=== PATIENT | male | born 1965 | race Caucasian/White ===

== ENCOUNTER 2021-09-01 10:18 | Emergency (ER) | payer OTHER ==
[2021-09-01 10:47] VITALS: BP 136/88; PULSE 82; RESP 20; TEMP 97.6
--- NOTE | 2021-09-01 11:29 | XR ---
EXAMINATION TYPE: XR elbow complete LT DATE OF EXAM: 09/01/2021 COMPARISON: NONE HISTORY: Pain FINDINGS: Three views of the elbow demonstrate no pathologic joint effusion. The osseous structures are intact . There is no acute fracture or dislocation. Small hypertrophic spur involving the head of the radi us. IMPRESSION: 1. No acute fracture or dislocation. If symptoms persist follow-up study in 7 to 10 days could be ob tained.
--- NOTE | 2021-09-01 11:32 | XR ---
EXAMINATION TYPE: XR ribs LT w pa chest xray DATE OF EXAM: 09/01/2021 COMPARISON: NONE HISTORY: Pain TECHNIQUE: Frontal view of the chest and 5 views of the left ribs are submitted FINDINGS: Slight diffuse emphysematous changes are seen with no sizable pneumothorax or consolidation . There is a slight cortical offset of the posterior lateral left eighth rib compatible with fracture. IMPRESSION: Acute mildly displaced fracture lateral left eighth rib.
[2021-09-01] MEDS ORDERED: MORPHINE SULFATE 4 MG/ML SYRINGE IVP STA (11:52)
[2021-09-01] MEDS ORDERED: ACET/COD 300 MG/30 MG STARTER PACK 6 TAB BTL PO STA (12:36)
--- NOTE | 2021-09-01 12:55 | ED ---
Fall HPI - General Chief Complaint: Fall Stated Complaint: Fall/rib pain Time Seen by Provider: 09/01/21 11:38 Source: patient Mode of arrival: wheelchair - History of Present Illness Initial Comments: Patient is a 55-year-old male who presents after a fall have for 4:00 AM last night. Patient reports he was stepping out of bed when he fell and landed on his bedside table and into the wall. Patient cannot recall if he lost consciousness. He is not on blood thinners. Patient reports pain over the lateral left ribs, 8/10 in severity. He also reports left elbow pain posterio rly.Patient denies head/neck pain, chest pain, shortness of breath. - Related Data Home Medications Medication Instructions Recorded Confirmed Albuterol Sulfate [Proair Hfa] 2 puff INHALATION RT-QID PRN 09/01/21 09/01/21 Allergies Allergy/AdvReac Type Severity Reaction Status Date / Time No Known Allergies Allergy Verified 09/01/21 12:51 Review of Systems ROS Statement: Those systems with pertinent positive or pertinent negative responses have been documented in the HPI. ROS Other: All systems not noted in ROS Statement are negative. Past Medical History Past Medical History: Asthma Additional Past Medical History / Comment(s): diverticulitis. History of Any Multi-Drug Resistant Organisms: None Reported Past Surgical History: Hernia Repair Past Psychological History: Anxiety Smoking Status: Current every day smoker Past Alcohol Use History: Occasional Past Drug Use History: Marijuana General Exam Limitations: no limitations General appearance: alert, in no apparent distress Head exam: Present: atraumatic, normocephalic, normal inspection Eye exam: Present: normal appearance, PERRL, EOMI. Absent: scleral icterus, conjunctival injection, periorbital swelling ENT exam: Present: normal exam, mucous membranes moist Neck exam: Present: normal inspection. Absent: tenderness, meningismus, lymphadenopathy Respiratory exam: Present: normal lung sounds bilaterally. Absent: respiratory distress, wheezes, rales, rhonchi, stridor Cardiovascular Exam: Present: regular rate, normal rhythm, normal heart sounds. Absent: systolic murmur, diastolic murmur, rubs, gallop, clicks GI/Abdominal exam: Present: soft, normal bowel sounds. Absent: distended, tenderness, guarding, rebound, rigid Extremities exam: Present: normal inspection, full ROM, tenderness (left elbow posteriorly ), normal capillary refill. Absent: joint swelling Back exam: Present: normal inspection, full ROM. Absent: tenderness, CVA tenderness (L), muscle spasm, paraspinal tenderness, vertebral tenderness, rash noted Neurological exam: Present: alert, oriented X3, CN II-XII intact Psychiatric exam: Present: normal affect, normal mood Skin exam: Present: warm, dry, intact, normal color. Absent: rash Course Vital Signs 09/01/21 10:43 Temperature 97.6 F Pulse Rate 82 Respiratory 20 Rate Blood Pressure 136/88 O2 Sat by Pulse 96 Oximetry Medical Decision Making - Medical Decision Making This is a 55-year-old male who reports with left-sided rib pain and left elbow pain after a fall at 4 AM last night. X-ray left ribs with chest x-ray reveals an acute mildly displaced fracture of the lateral left eighth rib. X-ray left elbow reveals no acute fracture or dislocation. This resulted patient. Patient seen by respiratory for spirometry treatment and education. Patient encouraged to continue spirometry at home. Patient instructed to return to emergency department if there are concerning, new,or worsening symptoms. Disposition Clinical Impression: Left rib fracture Disposition: HOME SELF-CARE Condition: Good Instructions (If sedation given, give patient instructions): Rib Fracture (ED) Additional Instructions: Take medication as directed. Use spirometer as directed. Return to the ED if worsening symptoms or if experienced symptoms of pneumonia such as fever, chills, cough, chest pain. Follow-up with primary care provider in 1-2 days. Is patient prescribed a controlled substance at d/c from ED?: No Referrals: Phan Zelaya MD [Primary Care Provider] - 1-2 days Time of Disposition: 12:54 Decision Time: 12:55
== END 2021-09-01 13:13 | disposition home or self-care (01) ==
LOC: EC 10:18
DX: S22.32XA Fracture of one rib, left side, initial encounter for closed fracture (principal); J45.909 Unspecified asthma, uncomplicated; F17.200 Nicotine dependence, unspecified, uncomplicated; W19.XXXA Unspecified fall, initial encounter
CPT/HCPCS: 71101; 73080; 99284; 96374; J2270

== ENCOUNTER 2022-02-16 06:51 | Emergency (ER) | payer OTHER ==
[2022-02-16 06:56] VITALS: RESP 18
[2022-02-16] MEDS ORDERED: SODIUM CHLORIDE 0.9% 500 ML 500 ML IV STA (07:38)
--- NOTE | 2022-02-16 07:41 | ED ---
General Adult HPI - General Chief complaint: Back Pain/Injury Stated complaint: RT flank pain Time Seen by Provider: 02/16/22 07:33 Source: patient, RN notes reviewed, old records reviewed Mode of arrival: ambulatory Limitations: no limitations - History of Present Illness Initial comments: 56-year-old male presenting for evaluation of right flank pain and lower abdominal pain. Patient states she was diagnosed with urinary tract infection and sinus infection with his primary care physician yesterday. He was started on Levaquin. Pain has worsened over the past 24 hours. He's had some diarrhea. He also has had some urinary urgency and dysuria. He denies fever. Denies vomiting. Denies a previous history of kidney stones. He states he does have a history of diverticulitis. - Related Data Home Medications Medication Instructions Recorded Confirmed Albuterol Sulfate [Proair Hfa] 2 puff INHALATION RT-QID PRN 09/01/21 02/16/22 Acetaminophen Tab [Tylenol Tab] 1,000 mg PO Q6HR PRN 02/16/22 02/16/22 Levofloxacin [Levaquin] 500 mg PO DAILY 02/16/22 02/16/22 Sertraline HCl [Zoloft] 50 mg PO DAILY 02/16/22 02/16/22 Allergies Allergy/AdvReac Type Severity Reaction Status Date / Time No Known Allergies Allergy Verified 02/16/22 09:46 Review of Systems ROS Statement: Those systems with pertinent positive or pertinent negative responses have been documented in the HPI. ROS Other: All systems not noted in ROS Statement are negative. Past Medical History Past Medical History: Asthma Additional Past Medical History / Comment(s): diverticulitis. History of Any Multi-Drug Resistant Organisms: None Reported Past Surgical History: Hernia Repair Past Psychological History: Anxiety Smoking Status: Current every day smoker Past Alcohol Use History: Occasional Past Drug Use History: Marijuana General Exam Limitations: no limitations General appearance: alert, in no apparent distress Head exam: Present: atraumatic, normocephalic Eye exam: Present: normal appearance, PERRL ENT exam: Present: normal exam Neck exam: Present: normal inspection. Absent: tenderness, meningismus Respiratory exam: Present: normal lung sounds bilaterally. Absent: respiratory distress, wheezes Cardiovascular Exam: Present: regular rate, normal rhythm GI/Abdominal exam: Present: soft, tenderness (Mild right-sided tenderness). Absent: distended, guarding, rebound Extremities exam: Present: normal inspection, normal capillary refill. Absent: calf tenderness Back exam: Present: CVA tenderness (R) Neurological exam: Present: alert, oriented X3, CN II-XII intact. Absent: motor sensory deficit Psychiatric exam: Present: normal affect, normal mood Skin exam: Present: warm, dry, intact. Absent: cyanosis, diaphoretic Course Vital Signs 02/16/22 06:54 Temperature 97.8 F Pulse Rate 89 Respiratory 18 Rate Blood Pressure 130/94 O2 Sat by Pulse 97 Oximetry Medical Decision Making - Medical Decision Making 56-year-old male with right upper abdominal pain and right flank pain currently being treated for urinary tract infection. I did obtain laboratory testing on this patient, normal white blood cell count, stable hemoglobin, mildly elevated liver enzymes and the patient does admit to daily alcohol use. His urinalysis is not suggestive of urinary tract infection there is no significant hematuria. The ultrasound is negative for acute pathology, no hydronephrosis on the right. - Lab Data Result diagrams: 02/16/22 07:42 02/16/22 07:42 Lab Results 02/16/22 02/16/22 02/16/22 Range/Units 07:42 07:42 07:42 WBC 8.9 (3.8-10.6) k/uL RBC 4.42 (4.30-5.90) m/uL Hgb 15.7 (13.0-17.5) gm/dL Hct 44.9 (39.0-53.0) % MCV 101.6 H (80.0-100.0) fL MCH 35.5 H (25.0-35.0) pg MCHC 35.0 (31.0-37.0) g/dL RDW 14.0 (11.5-15.5) % Plt Count 385 (150-450) k/uL MPV 7.1 Neutrophils % 72 % Lymphocytes % 17 % Monocytes % 7 % Eosinophils % 1 % Basophils % 1 % Neutrophils # 6.4 (1.3-7.7) k/uL Lymphocytes # 1.5 (1.0-4.8) k/uL Monocytes # 0.7 (0-1.0) k/uL Eosinophils # 0.1 (0-0.7) k/uL Basophils # 0.1 (0-0.2) k/uL Macrocytosis Slight PT 10.8 (9.0-12.0) sec INR 1.0 (<1.2) APTT 26.7 (22.0-30.0) sec Sodium (137-145) mmol/L Potassium (3.5-5.1) mmol/L Chloride (98-107) mmol/L Carbon Dioxide (22-30) mmol/L Anion Gap mmol/L BUN (9-20) mg/dL Creatinine (0.66-1.25) mg/dL Est GFR (CKD-EPI)AfAm (>60 ml/min/1.73 sqM) Est GFR (CKD-EPI)NonAf (>60 ml/min/1.73 sqM) Glucose (74-99) mg/dL Plasma Lactic Acid Mukul (0.7-2.0) mmol/L Calcium (8.4-10.2) mg/dL Total Bilirubin (0.2-1.3) mg/dL AST (17-59) U/L ALT (4-49) U/L Alkaline Phosphatase (38-126) U/L Total Protein (6.3-8.2) g/dL Albumin (3.5-5.0) g/dL Lipase (23-300) U/L Urine Color [place] Urine Appearance Clear (Clear) Urine pH 6.0 (5.0-8.0) Ur Specific [place] 1.050 H (1.001-1.035) Urine Protein 1+ H (Negative) Urine Glucose (UA) Negative (Negative) Urine Ketones 1+ H (Negative) Urine Blood Negative (Negative) Urine Nitrite Negative (Negative) Urine Bilirubin 1+ H (Negative) Urine Urobilinogen 6.0 (<2.0) mg/dL Ur Leukocyte Esterase Trace H (Negative) Urine RBC 1 (0-5) /hpf Urine WBC 1 (0-5) /hpf Ur Squamous Epith Cells <1 (0-4) /hpf Urine Mucus Many H (None) /hpf 02/16/22 02/16/22 Range/Units 07:42 07:42 WBC (3.8-10.6) k/uL RBC (4.30-5.90) m/uL Hgb (13.0-17.5) gm/dL Hct (39.0-53.0) % MCV (80.0-100.0) fL MCH (25.0-35.0) pg MCHC (31.0-37.0) g/dL RDW (11.5-15.5) % Plt Count (150-450) k/uL MPV Neutrophils % % Lymphocytes % % Monocytes % % Eosinophils % % Basophils % % Neutrophils # (1.3-7.7) k/uL Lymphocytes # (1.0-4.8) k/uL Monocytes # (0-1.0) k/uL Eosinophils # (0-0.7) k/uL Basophils # (0-0.2) k/uL Macrocytosis PT (9.0-12.0) sec INR (<1.2) APTT (22.0-30.0) sec Sodium 136 L (137-145) mmol/L Potassium 3.9 (3.5-5.1) mmol/L Chloride 103 (98-107) mmol/L Carbon Dioxide 23 (22-30) mmol/L Anion Gap 10 mmol/L BUN 10 (9-20) mg/dL Creatinine 0.87 (0.66-1.25) mg/dL Est GFR (CKD-EPI)AfAm >90 (>60 ml/min/1.73 sqM) Est GFR (CKD-EPI)NonAf >90 (>60 ml/min/1.73 sqM) Glucose 112 H (74-99) mg/dL Plasma Lactic Acid Mukul 1.0 (0.7-2.0) mmol/L Calcium 9.6 (8.4-10.2) mg/dL Total Bilirubin 1.4 H (0.2-1.3) mg/dL AST 104 H (17-59) U/L ALT 125 H (4-49) U/L Alkaline Phosphatase 121 (38-126) U/L Total Protein 8.1 (6.3-8.2) g/dL Albumin 4.8 (3.5-5.0) g/dL Lipase 113 (23-300) U/L Urine Color Urine Appearance (Clear) Urine pH (5.0-8.0) Ur Specific [place] (1.001-1.035) Urine Protein (Negative) Urine Glucose (UA) (Negative) Urine Ketones (Negative) Urine Blood (Negative) Urine Nitrite (Negative) Urine Bilirubin (Negative) Urine Urobilinogen (<2.0) mg/dL Ur Leukocyte Esterase (Negative) Urine RBC (0-5) /hpf Urine WBC (0-5) /hpf Ur Squamous Epith Cells (0-4) /hpf Urine Mucus (None) /hpf Disposition Clinical Impression: Flank pain, Abdominal pain Disposition: HOME SELF-CARE Condition: Good Instructions (If sedation given, give patient instructions): Abdominal Pain (ED) Is patient prescribed a controlled substance at d/c from ED?: No Referrals: Phan Zelaya MD [Primary Care Provider] - 1-2 days Time of Disposition: 10:08
[2022-02-16 08:10] LABS: Basophils # (A) 0.1 k/uL (0-0.2); Basophils % (A) 1 %; Eosinophils # (A) 0.1 k/uL (0-0.7); Eosinophils % (A) 1 %; HCT 44.9 % (39.0-53.0); HGB 15.7 gm/dL (13.0-17.5); Lymphocytes # (A) 1.5 k/uL (1.0-4.8); Lymphocytes % (A) 17 %; MCH 35.5 pg (25.0-35.0); MCV 101.6 fL (80.0-100.0); Macrocytosis Slight; Mean Platelet Volume 7.1; Monocytes # (A) 0.7 k/uL (0-1.0); Monocytes % (A) 7 %; Neutrophils # (A) 6.4 k/uL (1.3-7.7); Neutrophils % (A) 72 %; Platelet Count 385 k/uL (150-450); RBC 4.42 m/uL (4.30-5.90); WBC 8.9 k/uL (3.8-10.6)
[2022-02-16] MEDS ORDERED: KETOROLAC 15 MG/ML 1 ML VIAL IVP STA (08:10)
[2022-02-16 08:23] LABS: Partial Thromboplastin Time 26.7 sec (22.0-30.0); Prothrombin Time 10.8 sec (9.0-12.0)
[2022-02-16 08:24] LABS: ALT 125 U/L (4-49); African American GFR (CKD) >90 (>60 ml/min/1.73 sqM); Albumin 4.8 g/dL (3.5-5.0); Anion Gap 10 mmol/L; Calcium 9.6 mg/dL (8.4-10.2); Carbon Dioxide 23 mmol/L (22-30); Chloride 103 mmol/L (98-107); Lipase 113 U/L (23-300); Non-African American GFR(CKD) >90 (>60 ml/min/1.73 sqM); Potassium 3.9 mmol/L (3.5-5.1); Sodium 136 mmol/L (137-145); Total Bilirubin 1.4 mg/dL (0.2-1.3); Total Protein 8.1 g/dL (6.3-8.2)
[2022-02-16 08:25] LABS: AST 104 U/L (17-59); Alkaline Phosphatase 121 U/L (38-126); Blood Urea Nitrogen 10 mg/dL (9-20); Glucose 112 mg/dL (74-99)
[2022-02-16 08:42] LABS: Appearance,Urine Clear (Clear); Bilirubin,Urine 1+ (Negative); Blood,Urine Negative (Negative); Color,Urine Orange; Glucose,Urine (UA) Negative (Negative); Ketones,Urine 1+ (Negative); Leukocyte Esterase,Urine Trace (Negative); Mucus,Urine Many /hpf; Nitrite,Urine Negative (Negative); Protein,Urine 1+ (Negative); RBC,Urine 1 /hpf (0-5); Squamous Epithelial Cell,Urine <1 /hpf (0-4); WBC,Urine 1 /hpf (0-5)
--- NOTE | 2022-02-16 09:25 | US ---
EXAMINATION TYPE: US gallbladder DATE OF EXAM: 02/16/2022 COMPARISON: CT: 2010 CLINICAL HISTORY: ruq pain. Right flank pain EXAM MEASUREMENTS: Liver Length: 15.8 cm Gallbladder Wall: 0.19 cm CBD: 0.43 cm Right Kidney: 11.4 x 5.6 x 4.6 cm Pancreas: Limited due to bowel gas Liver: Increased attenuation, heterogeneous Gallbladder: Measuring 9.5 cm - upper limits of normal. Evidence for sonographic Rocha's sign: No CBD: wnl Right Kidney: wnl IMPRESSION: 1. No evidence for acute abdominal process. 2. Hepatic steatosis.
[2022-02-16 10:57] VITALS: BP 132/89; PULSE 82; TEMP 98
== END 2022-02-16 10:55 | disposition home or self-care (01) ==
LOC: EC 06:51
DX: R10.30 Lower abdominal pain, unspecified (principal); J45.909 Unspecified asthma, uncomplicated; F17.200 Nicotine dependence, unspecified, uncomplicated
CPT/HCPCS: 36415; 80053; 83605; 83690; 85025; 85610; 85730; 81001; 76705; 99284; 96374; 96361; J1885

== ENCOUNTER 2023-08-03 17:49 | Emergency (ER) | payer OTHER ==
--- NOTE | 2023-08-03 18:00 | ED ---
Chest Pain HPI - General Source: patient, family, RN notes reviewed <Verna Galicia - Last Filed: 08/03/23 17:58> - General Source: patient, RN notes reviewed Mode of arrival: ambulatory Limitations: no limitations - History of Present Illness MD Complaint: chest pain <Janette Farah - Last Filed: 08/04/23 05:20> - General Chief Complaint: Chest Pain Stated Complaint: Chest pain, SOB Time Seen by Provider: 08/03/23 17:58 - History of Present Illness Initial Comments: patient is a 57-year-old male presented ER chief complaint of chest pain. Patient states it's been going on before Tuesday, [id number], but it got very bad on Tuesday. Patient states he is also having shortness of breath. Patient states he began having a high low at work. Patient is also endorsing recent fevers and chills. (Verna Galicia) This is a 57-year-old male who presents to the emergency department for chest pain. Patient states that 3-4 days ago he started to develop centralized chest pain with associated shortness of breath. Symptoms have since been occurring intermittently. Unsure if the pain is correlated with exertion. When he got home from work today, he states that the pain became severe, and at that point he decided to come to the emergency department for evaluation. Reports a history of asthma. Denies any cardiac history. He is a daily smoker. Denies any family history of coronary artery disease. (Janette Farah) - Related Data Home Medications Medication Instructions Recorded Confirmed Albuterol Sulfate [Proair Hfa] 2 puff INHALATION RT-QID PRN 09/01/21 02/16/22 Acetaminophen Tab [Tylenol Tab] 1,000 mg PO Q6HR PRN 02/16/22 02/16/22 Levofloxacin [Levaquin] 500 mg PO DAILY 02/16/22 02/16/22 Sertraline HCl [Zoloft] 50 mg PO DAILY 02/16/22 02/16/22 Previous Rx's Medication Instructions Recorded Ketorolac [Toradol] 10 mg PO Q6HR PRN #15 tab 08/04/23 Lidocaine 5% Patch [Lidoderm 5% 1 patch TOPICAL DAILY PRN #30 patch 08/04/23 Patch] Allergies Allergy/AdvReac Type Severity Reaction Status Date / Time No Known Allergies Allergy Verified 08/03/23 18:19 Review of Systems ROS Other: All systems not noted in ROS Statement are negative. <Verna Galicia - Last Filed: 08/03/23 17:58> ROS Other: All systems not noted in ROS Statement are negative. <Janette Farah - Last Filed: 08/04/23 05:20> ROS Statement: Those systems with pertinent positive or pertinent negative responses have been documented in the HPI. Past Medical History Past Medical History: Asthma Additional Past Medical History / Comment(s): diverticulitis. History of Any Multi-Drug Resistant Organisms: None Reported Past Surgical History: Hernia Repair Past Psychological History: Anxiety Smoking Status: Current every day smoker Past Alcohol Use History: Occasional Past Drug Use History: Marijuana <Verna Galicia - Last Filed: 08/03/23 17:58> General Exam <Verna Galicia - Last Filed: 08/03/23 17:58> Limitations: no limitations General appearance: alert, in no apparent distress Head exam: Present: atraumatic, normocephalic, normal inspection Respiratory exam: Present: normal lung sounds bilaterally, chest wall tenderness (Xiphoid process). Absent: respiratory distress, wheezes, rales, rhonchi, stridor Cardiovascular Exam: Present: regular rate, normal rhythm, normal heart sounds. Absent: systolic murmur, diastolic murmur, rubs, gallop, clicks GI/Abdominal exam: Present: soft, normal bowel sounds. Absent: distended, tenderness, guarding, rebound, rigid Neurological exam: Present: alert, oriented X3, CN II-XII intact Psychiatric exam: Present: normal affect, normal mood Skin exam: Present: warm, dry, intact, normal color. Absent: rash <Janette Farah - Last Filed: 08/04/23 05:20> - General Exam Comments Initial Comments: Visual Physical Exam Vital signs reviewed General: Well-appearing, nontoxic, no acute distress. Head: Normocephalic, atraumatic Eyes: PERRLA, EOMI ENT: Airway patent Chest: Nonlabored breathing Skin: No visual rash, normal skin tone Neuro: Alert and oriented 3 Musculoskeletal: No gross abnormalities (Verna Galicia) Course Vital Signs 08/03/23 08/04/23 08/04/23 18:17 03:15 03:45 Temperature 98 F Pulse Rate 58 L 67 53 L Respiratory 18 14 14 Rate Blood Pressure 180/106 154/110 146/91 O2 Sat by Pulse 100 95 98 Oximetry 08/04/23 05:09 Temperature Pulse Rate 53 L Respiratory 16 Rate Blood Pressure 159/87 O2 Sat by Pulse 97 Oximetry Chest Pain MDM <Verna Galicia - Last Filed: 08/03/23 17:58> <Janette Farah - Last Filed: 08/04/23 05:20> - MDM I performed the quick note portion of the exam. Electronically signed by Verna Galicia PA-C (Verna Galicia) This is a 57-year-old male who presents to the emergency department for chest pain. Was pt. sent in by a medical professional or institution? @ -No Did you speak to anyone other than the patient for history? @ -No Did you review nursing and triage notes? @ -Yes, and I agree, it is accurate with regards to the patient's symptoms. Were old charts reviewed? @ -No Differential Diagnosis? @ -Differential Chest Pain: Stable Angina, Unstable Angina, STEMI, NSTEMI Aortic Dissection, Pneumothorax, Musculoskeletal, Esophageal Spasm GERD, Cholecystitis, Pancreatitis, Zoster, this is not meant to be an all-inclusive list. EKG interpreted by me (3pts min.)? @ EKG interpreted by me demonstrating the following: Sinus bradycardia. Ventricular rate 56 beats per minute, IL interval 174 ms, QRS duration 93 ms, QTC 406 ms. X-rays interpreted by me (1pt min.)? @ -Chest x-ray obtained, my interpretation identifies no localized consolidations or infiltrates. CT interpreted by me (1pt min.)? @ -Not obtained U/S interpreted by me (1pt. min.)? @ -Not obtained What testing was considered but not performed? (CT, X-rays, U/S, labs)? Why? @ -None What meds were considered but not given? Why? @ -None Did you discuss the management of the patient with other professionals? @ -No Did you reconcile home meds? @ -No Was smoking cessation discussed for >3mins.? @ -I discussed smoking cessation for greater than 3 minutes. The risk of smoking were discussed with the patient including but not limited to risks of cancer, stroke, coronary artery disease and COPD. Also discussed with patient were multiple methods of quitting smoking. Lastly we discussed the financial cost of smoking. Was critical care preformed (if so, how long)? @ -No Were there social determinants of health that impacted care today? How? (Homelessness, low income, unemployed, alcoholism, drug addiction, transportation, low edu. Level, literacy, decrease access to med. care, snf, rehab)? @ -No Was there de-escalation of care discussed even if they declined? (Discuss DNR or withdrawal of care, Hospice)? @ -No What co-morbidities impacted this encounter? (DM, HTN, Smoking, COPD, CAD, Cancer, CVA, Hep., AIDS, mental health diagnosis, sleep apnea, morbid obesity)? @ -Smoking, asthma Was patient admitted / discharged? @ -Discharged. Lab work obtained and found to be unremarkable. Chest x-ray revealed no acute findings. Patient is describing his pain as being at the xiphoid process. The pain is also reproducible. We did do 2 rounds of nitroglycerin with no relief in symptoms. He was subsequently given Toradol and a lidocaine patch, and states that the pain was significantly improved afterwards. I did offer admission for cardiac observation given his age and smoking history, however he declined and felt comfortable with discharge home. Rx for Toradol and lidocaine patches provided with dosing instructions reviewed. Otherwise advised follow up with his PCP. Undiagnosed new problem with uncertain prognosis? @ -None Drug Therapy requiring intensive monitoring for toxicity (Heparin, Nitro, Insulin, Cardizem)? @ -None Were any procedures done? @ -None Diagnosis/symptom? @ -Chest pain, xiphoidalgia Acute, or Chronic, or Acute on Chronic? @ -Acute Uncomplicated (without systemic symptoms) or Complicated (systemic symptoms)? @ -Uncomplicated Side effects of treatment? @ -None Exacerbation, Progression, or Severe Exacerbation] @ -Not applicable Poses a threat to life or bodily function? @ -Unlikely Return precautions reviewed in depth, the patient is instructed to return to the emergency department with any new, worsening, or concerning symptoms. Patient verbalized understanding. This case was discussed in detail with the attending ED physician, Dr. Mcfarlane. Presentation, findings, and treatment plan discussed in detail as well. (Janette Farah) Disposition <Verna Galicia - Last Filed: 08/03/23 17:58> Is patient prescribed a controlled substance at d/c from ED?: No <Janette Farah - Last Filed: 08/04/23 05:20> Clinical Impression: Chest pain, Xiphoidalgia Disposition: HOME SELF-CARE Instructions (If sedation given, give patient instructions): Chest Pain (ED) Additional Instructions: Return to the emergency department with any new, worsening, or concerning symptoms. Take the Toradol with Tylenol as needed for pain relief. If you choose to take the Toradol, do not take any other anti-inflammatories such as ibuprofen, take one or the other. You can also apply the lidocaine patches daily. Follow up with your primary care provider in 1-2 days. Prescriptions: Lidocaine 5% Patch [Lidoderm 5% Patch] 1 patch TOPICAL DAILY PRN #30 patch PRN Reason: Pain Ketorolac [Toradol] 10 mg PO Q6HR PRN #15 tab PRN Reason: Pain Referrals: Phan Zelaya MD [Primary Care Provider] - 1-2 days
[2023-08-03 18:34] VITALS: TEMP 98
[2023-08-03 19:10] LABS: Basophils # (A) 0.1 k/uL (0-0.2); Basophils % (A) 1 %; Eosinophils # (A) 0.1 k/uL (0-0.7); Eosinophils % (A) 2 %; HCT 50.5 % (39.0-53.0); HGB 17.4 gm/dL (13.0-17.5); Lymphocytes # (A) 1.3 k/uL (1.0-4.8); Lymphocytes % (A) 21 %; MCH 35.9 pg (25.0-35.0); MCHC 34.5 g/dL (31.0-37.0); MCV 103.9 fL (80.0-100.0); Macrocytosis Slight; Mean Platelet Volume 7.7; Monocytes # (A) 0.4 k/uL (0-1.0); Monocytes % (A) 7 %; Neutrophils # (A) 4.3 k/uL (1.3-7.7); Neutrophils % (A) 67 %; Platelet Count 320 k/uL (150-450); RBC 4.86 m/uL (4.30-5.90); RDW 13.9 % (11.5-15.5); WBC 6.3 k/uL (3.8-10.6)
[2023-08-03 19:16] LABS: ALT 79 U/L (4-49); AST 68 U/L (17-59); African American GFR (CKD) >90 (>60 ml/min/1.73 sqM); Albumin 4.4 g/dL (3.5-5.0); Alkaline Phosphatase 99 U/L (38-126); Anion Gap 13 mmol/L; Blood Urea Nitrogen 9 mg/dL (9-20); Carbon Dioxide 21 mmol/L (22-30); Chloride 101 mmol/L (98-107); Glucose 88 mg/dL (74-99); Magnesium 1.7 mg/dL (1.6-2.3); Non-African American GFR(CKD) >90 (>60 ml/min/1.73 sqM); Phosphorus 2.7 mg/dL (2.5-4.5); Potassium 3.8 mmol/L (3.5-5.1); Sodium 135 mmol/L (137-145); Total Bilirubin 1.1 mg/dL (0.2-1.3); Total Protein 7.4 g/dL (6.3-8.2)
[2023-08-03 19:23] LABS: INR 0.9 (<1.2); Partial Thromboplastin Time 25.2 sec (22.0-30.0); Prothrombin Time 9.9 sec (10.0-12.5)
--- NOTE | 2023-08-03 22:18 | XR ---
EXAMINATION TYPE: XR chest 2V DATE OF EXAM: 08/03/2023 7:48 PM CLINICAL INDICATION:Male, 57 years old with history of Chest Pain; [facility] COMPARISON: 09/26/2010 outside chest x-ray TECHNIQUE: XR chest 2V. Frontal PA and lateral views of the chest. FINDINGS: Lines/Tubes: None. Heart/mediastinum: Cardiomediastinal silhouette is well defined. Heart size is normal. Aorta is tor tuous. Pulmonary vascularity: Not increased, Lungs/Pleura: There is flattening of the diaphragm with increased lucency of the lungs. No evidence o f pneumothorax, pleural effusion or focal consolidation. Musculoskeletal: No acute osseous abnormality demonstrated in the limits of the exam. Degenerative c hanges of the spine and shoulders. Other findings: None. IMPRESSION: 1. No acute cardiopulmonary disease process. 2. COPD changes.
[2023-08-04] MEDS ORDERED: SODIUM CHLORIDE 0.9% 1,000 ML IV STA (02:43)
[2023-08-04] MEDS ORDERED: NITROGLYCERIN SL TABS 0.4 MG TAB SUBLINGUAL STA ×2 (02:43→03:33)
[2023-08-04] MEDS ORDERED: KETOROLAC 15 MG/ML 1 ML VIAL IVP STA (03:33)
[2023-08-04] MEDS ORDERED: LIDOCAINE 4% PATCH TOPICAL ONE (03:33)
[2023-08-04 04:32] VITALS: PULSE 53
[2023-08-04] MEDS ORDERED: traMADol 50 MG STARTER PACK 3 TAB BTL PO STA (04:32)
[2023-08-04] MEDS ORDERED: IBUPROFEN 600 MG STARTER PACK 4 TAB BTL PO STA (04:32)
[2023-08-04 05:18] VITALS: BP 159/87; RESP 16
== END 2023-08-04 05:19 | disposition home or self-care (01) ==
LOC: EC 17:49
DX: R07.9 Chest pain, unspecified (principal); R00.1 Bradycardia, unspecified; J45.909 Unspecified asthma, uncomplicated; F41.9 Anxiety disorder, unspecified; F17.200 Nicotine dependence, unspecified, uncomplicated; Z79.899 Other long term (current) drug therapy
CPT/HCPCS: 99285; 96374; 96361; 99406; 36415; 93005; 80053; 83735; 84100; 84484; 85025; 85610; 85730; 71046; J1885

== ENCOUNTER 2023-12-07 13:50 | Emergency (ER) | payer OTHER ==
[2023-12-07 14:18] VITALS: TEMP 97.9
--- NOTE | 2023-12-07 14:24 | ED ---
Syncope HPI - General Chief Complaint: Syncope Stated Complaint: Syncope Time Seen by Provider: 12/07/23 13:57 Source: EMS, RN notes reviewed, old records reviewed Mode of arrival: EMS Limitations: no limitations - History of Present Illness Initial Comments: This is a 58-year-old male to the ER for evaluation today. Patient presents today for evaluation regards to syncopal event resulting in head injury, patient has syncopal event and now complaining of headache. Patient has some mild upper back pain but no other significant trauma noted. Patient states he does not remember anything surrounding the event and was brought into the ER by EMS stephon ent has no prior history of syncope no headache chest pain shortness of breath or abdominal pain. MD Complaint: loss of consciousness, felt faint -: minutes(s) Prodromal Symptoms: headache, vision changes Witnessed: no Injuries Sustained Associated with Event: Head Current Symptoms: none History: previous syncopal episode Context: at rest Treatments Prior to Arrival: none - Related Data On Hormonal Control: No Home Medications Medication Instructions Recorded Confirmed Albuterol Sulfate [Proair Hfa] 2 puff INHALATION RT-QID PRN 09/01/21 12/07/23 Sertraline HCl [Zoloft] 50 mg PO DAILY 02/16/22 12/07/23 Ibuprofen [Motrin] 800 mg PO TID PRN 12/07/23 12/07/23 Levothyroxine Sodium [Synthroid] 25 mcg PO DAILY 12/07/23 12/07/23 Allergies Allergy/AdvReac Type Severity Reaction Status Date / Time No Known Allergies Allergy Verified 12/07/23 15:55 Review of Systems ROS Statement: Those systems with pertinent positive or pertinent negative responses have been documented in the HPI. ROS Other: All systems not noted in ROS Statement are negative. Past Medical History Past Medical History: Asthma Additional Past Medical History / Comment(s): diverticulitis. History of Any Multi-Drug Resistant Organisms: None Reported Past Surgical History: Hernia Repair Past Psychological History: Anxiety Smoking Status: Current every day smoker Past Alcohol Use History: Occasional Past Drug Use History: Marijuana General Exam General appearance: alert, in no apparent distress Head exam: Present: normocephalic, normal inspection. Absent: atraumatic (Forehead hematoma) Eye exam: Present: normal appearance, PERRL, EOMI. Absent: scleral icterus, conjunctival injection, periorbital swelling ENT exam: Present: normal exam, mucous membranes moist Neck exam: Present: normal inspection. Absent: tenderness, meningismus, lymphadenopathy Respiratory exam: Present: normal lung sounds bilaterally. Absent: respiratory distress, wheezes, rales, rhonchi, stridor Cardiovascular Exam: Present: regular rate, normal rhythm, normal heart sounds. Absent: systolic murmur, diastolic murmur, rubs, gallop, clicks GI/Abdominal exam: Present: soft, normal bowel sounds. Absent: distended, tend erness, guarding, rebound, rigid Extremities exam: Present: normal inspection, full ROM, normal capillary refill. Absent: tenderness, pedal edema, joint swelling, calf tenderness Back exam: Present: normal inspection Neurological exam: Present: alert, oriented X3, CN II-XII intact Psychiatric exam: Present: normal affect, normal mood Skin exam: Present: warm, dry, intact, normal color. Absent: rash Course Vital Signs 12/07/23 12/07/23 12/07/23 14:00 15:08 17:20 Temperature 97.9 F Pulse Rate 68 63 65 Respiratory 14 16 16 Rate Blood Pressure 117/82 126/81 126/81 O2 Sat by Pulse 98 96 Oximetry - Reevaluation(s) Reevaluation #1: 12/07/23 16:35 Records reviewed Reevaluation #2: 12/07/23 16:35 Patient symptoms unchanged no recurrent syncope patient still confused around events regarding the ER visit Reevaluation #3: 12/07/23 16:36 Patient informed of results questions answered Reevaluation #4: Was pt. sent in by a medical professional or institution (, PA, HEALTH COACH, urgent care, hospital, or group home...) When possible be specific @ -no Did you speak to anyone other than the patient for history (EMS, parent, family, police, friend...)? What history was obtained from this source @ -no Did you review nursing and triage notes (agree or disagree)? Why? @ -agree Are old charts reviewed (outside hosp., previous admission, EMS record, old EKG, old radiological studies, urgent care reports/EKG's, group home records)? Report findings @ -yes Differential Diagnosis (chest pain, altered mental status, abdominal pain women, abdominal pain men, vaginal bleeding, weakness, fever, dyspnea, syncope, headache, dizziness, GI bleed, back pain, seizure, CVA, palpatations, mental health, musculoskeletal)? @ -prior EKG interpreted by me (3pts min.). @ -yes X-rays interpreted by me (1pt min.). @ -yes negative for acute disease CT interpreted by me (1pt min.). @ -Yes negative for acute disease U/S interpreted by me (1pt. min.). @ -no What testing was considered but not performed or refused? (CT, X-rays, U/S, labs)? Why? @ -none What meds were considered but not given or refused? Why? @ -none Did you discuss the management of the patient with other professionals (professionals i.e. , PA, HEALTH COACH, lab, RT, psych nurse, manager social media, international broadcast music librarian, teacher, grant officer, manager rn case)? Give summary @ -no Was smoking cessation discussed for >3mins.? @ -no Was critical care preformed (if so, how long)? @ -no Were there social determinants of health that impacted care today? How? (Homelessness, low income, unemployed, alcoholism, drug addiction, transpor tation, low edu. Level, literacy, decrease access to med. care, custodial, rehab)? @ -none Was there de-escalation of care discussed even if they declined (Discuss DNR or withdrawal of care, Hospice)? DNR status @ -no What co-morbidities impacted this encounter? (DM, HTN, Smoking, COPD, CAD, Cancer, CVA, ARF, Chemo, Hep., AIDS, mental health diagnosis, sleep apnea, morbid obesity)? @ -none Was patient admitted / discharged? Hospital course, mention meds given and route, prescriptions, significant lab abnormalities, going to OR and other pertinent info. @ - 58 male with syncopal event resulting in head injury. At this time patient has no significant traumatic injury noted and patient can be discharged home patient does have significant forehead hematoma but prefers no further evaluation regarding syncopal event Discharge Undiagnosed new problem with uncertain prognosis? @ -no Drug Therapy requiring intensive monitoring for toxicity (Heparin, Nitro, Insulin, Cardizem)? @ -no Were any procedures done? @ -no Diagnosis/symptom? @ -Syncope Acute, or Chronic, or Acute on Chronic? @ -Acute Uncomplicated (without systemic symptoms) or Complicated (systemic symptoms)? @ -Complicated Side effects of treatment? @ -no Exacerbation, Progression, or Severe Exacerbation? @ -exacerbation Poses a threat to life or bodily function? How? (Chest pain, USA, RI, pneumonia, PE, COPD, DKA, ARF, appy, cholecystitis, CVA, Diverticulitis, Homicidal, Suicidal, threat to staff... and all critical care pts) @ -yes with cause of syncope Reevaluation #5: Differential Syncope: Valvular disease, hypertrophic cardiomyopathy, pulmonary embolism, tamponade, tachycardia, bradycardia, RI, hypovolemia, hemorrhage, dissection, anemia, intracranial hemorrhage, seizure, hypoglycemia, carbon monoxide poisoning, this is not meant to be an all-inclusive list. EKG Findings - EKG Comments: EKG Findings:: EKG is sinus 70 NH 166 QRS 101 QTc 435 - EKG Results: EKG: interpreted by THUY Medical Decision Making - Medical Decision Making 58 male with syncopal event resulting in head injury. At this time patient has no significant traumatic injury noted and patient can be discharged home patient does have significant forehead hematoma but prefers no further evaluation regarding syncopal event - Lab Data Result diagrams: 12/07/23 14:41 12/07/23 14:41 Lab Results 12/07/23 12/07/23 12/07/23 Range/Units 14:41 14:41 14:41 WBC 6.6 (3.8-10.6) k/uL RBC 4.27 L (4.30-5.90) m/uL Hgb 15.3 (13.0-17.5) gm/dL Hct 45.3 (39.0-53.0) % MCV 106.1 H (80.0-100.0) fL MCH 35.9 H (25.0-35.0) pg MCHC 33.8 (31.0-37.0) g/dL RDW 14.8 (11.5-15.5) % Plt Count 201 (150-450) k/uL MPV 7.7 Neutrophils % 76 % Lymphocytes % 13 % Monocytes % 8 % Eosinophils % 2 % Basophils % 0 % Neutrophils # 5.0 (1.3-7.7) k/uL Lymphocytes # 0.8 L (1.0-4.8) k/uL Monocytes # 0.5 (0-1.0) k/uL Eosinophils # 0.1 (0-0.7) k/uL Basophils # 0.0 (0-0.2) k/uL Macrocytosis Moderate PT 10.0 (10.0-12.5) sec INR 0.9 (<1.2) APTT 24.4 (22.0-30.0) sec D-Dimer 0.35 (<0.60) mg/L FEU Sodium 132 L (137-145) mmol/L Potassium 3.4 L (3.5-5.1) mmol/L Chloride 101 (98-107) mmol/L Carbon Dioxide 25 (22-30) mmol/L Anion Gap 6 mmol/L BUN 17 (9-20) mg/dL Creatinine 1.00 (0.66-1.25) mg/dL Est GFR (CKD-EPI)AfAm >90 (>60 ml/min/1.73 sqM) Est GFR (CKD-EPI)NonAf 82 (>60 ml/min/1.73 sqM) Glucose 113 H (74-99) mg/dL Calcium 9.0 (8.4-10.2) mg/dL Magnesium 2.2 (1.6-2.3) mg/dL Total Bilirubin 0.7 (0.2-1.3) mg/dL AST 68 H (17-59) U/L ALT 46 (4-49) U/L Alkaline Phosphatase 105 (38-126) U/L Troponin I (0.000-0.034) ng/mL Total Protein 7.1 (6.3-8.2) g/dL Albumin 4.2 (3.5-5.0) g/dL Serum Alcohol <10 mg/dL 12/07/23 Range/Units 14:41 WBC (3.8-10.6) k/uL RBC (4.30-5.90) m/uL Hgb (13.0-17.5) gm/dL Hct (39.0-53.0) % MCV (80.0-100.0) fL MCH (25.0-35.0) pg MCHC (31.0-37.0) g/dL RDW (11.5-15.5) % Plt Count (150-450) k/uL MPV Neutrophils % % Lymphocytes % % Monocytes % % Eosinophils % % Basophils % % Neutrophils # (1.3-7.7) k/uL Lymphocytes # (1.0-4.8) k/uL Monocytes # (0-1.0) k/uL Eosinophils # (0-0.7) k/uL Basophils # (0-0.2) k/uL Macrocytosis PT (10.0-12.5) sec INR (<1.2) APTT (22.0-30.0) sec D-Dimer (<0.60) mg/L FEU Sodium (137-145) mmol/L Potassium (3.5-5.1) mmol/L Chloride (98-107) mmol/L Carbon Dioxide (22-30) mmol/L Anion Gap mmol/L BUN (9-20) mg/dL Creatinine (0.66-1.25) mg/dL Est GFR (CKD-EPI)AfAm (>60 ml/min/1.73 sqM) Est GFR (CKD-EPI)NonAf (>60 ml/min/1.73 sqM) Glucose (74-99) mg/dL Calcium (8.4-10.2) mg/dL Magnesium (1.6-2.3) mg/dL Total Bilirubin (0.2-1.3) mg/dL AST (17-59) U/L ALT (4-49) U/L Alkaline Phosphatase (38-126) U/L Troponin I <0.012 (0.000-0.034) ng/mL Total Protein (6.3-8.2) g/dL Albumin (3.5-5.0) g/dL Serum Alcohol mg/dL - EKG Data -: EKG Interpreted by Co - Radiology Data Radiology results: report reviewed (CT brain and C-spine negative for acute d isease), image reviewed Disposition Clinical Impression: Syncope due to orthostatic hypotension, Traumatic hematoma of forehead, Head injury, Syncope and collapse Disposition: HOME SELF-CARE Condition: Undetermined Instructions (If sedation given, give patient instructions): Syncope (ED), Hematoma (ED) Is patient prescribed a controlled substance at d/c from ED?: No Referrals: Phan Zelaya MD [Primary Care Provider] - 1-2 days Time of Disposition: 16:30
[2023-12-07 14:51] LABS: Basophils % (A) 0 %; Eosinophils # (A) 0.1 k/uL (0-0.7); Eosinophils % (A) 2 %; HCT 45.3 % (39.0-53.0); HGB 15.3 gm/dL (13.0-17.5); Lymphocytes # (A) 0.8 k/uL (1.0-4.8); Lymphocytes % (A) 13 %; MCH 35.9 pg (25.0-35.0); MCHC 33.8 g/dL (31.0-37.0); MCV 106.1 fL (80.0-100.0); Macrocytosis Moderate; Mean Platelet Volume 7.7; Monocytes # (A) 0.5 k/uL (0-1.0); Monocytes % (A) 8 %; Neutrophils % (A) 76 %; Platelet Count 201 k/uL (150-450); RBC 4.27 m/uL (4.30-5.90); RDW 14.8 % (11.5-15.5); WBC 6.6 k/uL (3.8-10.6)
[2023-12-07 15:04] LABS: ALT 46 U/L (4-49); AST 68 U/L (17-59); African American GFR (CKD) >90 (>60 ml/min/1.73 sqM); Albumin 4.2 g/dL (3.5-5.0); Alcohol <10 mg/dL; Alkaline Phosphatase 105 U/L (38-126); Anion Gap 6 mmol/L; Blood Urea Nitrogen 17 mg/dL (9-20); Carbon Dioxide 25 mmol/L (22-30); Chloride 101 mmol/L (98-107); Glucose 113 mg/dL (74-99); Magnesium 2.2 mg/dL (1.6-2.3); Non-African American GFR(CKD) 82 (>60 ml/min/1.73 sqM); Potassium 3.4 mmol/L (3.5-5.1); Sodium 132 mmol/L (137-145); Total Bilirubin 0.7 mg/dL (0.2-1.3); Total Protein 7.1 g/dL (6.3-8.2)
[2023-12-07 15:05] LABS: INR 0.9 (<1.2); Partial Thromboplastin Time 24.4 sec (22.0-30.0)
[2023-12-07] MEDS: SODIUM CHLORIDE 0.9% 1,000 ML IV STA (15:31)
--- NOTE | 2023-12-07 15:44 | CT ---
EXAMINATION TYPE: CT brain praveena wo con DATE OF EXAM: 12/07/2023 COMPARISON: None HISTORY: syncope, fall CT DLP: 1571.7 mGycm, Automated exposure control for dose reduction was used. CONTRAST: None CT of the brain is performed utilizing 3 mm thick sections through the posterior fossa and 3 mm thick sections through the remaining calvarium. Study is performed within 24 hours of arrival to the hospital. No abnormal hyperdensity is present to suggest an acute intracranial hemorrhage. No mass lesion is evident. No acute infarcts are evident. Ventricles and sulci are appropriate for the patient age. There is soft tissue swelling over the left frontal temporal region. No underlying fracture. There is a retention cyst within the posterior right maxillary sinus. Remaining paranasal sinuses and mastoid air cells are clear. IMPRESSIONS: 1. No acute intracranial process. Follow-up MRI can be performed as clinically indicated. CT cervical spine. COMPARISON: None CT of the cervical spine is performed in the axial plane at 2 mm thick sections. Reconstructed image s in the coronal, and sagittal plane are reviewed on the computer. No acute fractures are evident. Vertebral body alignment is normal. There is loss of disc height at C4-5 C5-6 C6-7. Vertebral body heights are preserved. No spinal canal stenosis is evident. No neural foraminal stenosis is evident. IMPRESSION: 1. Degenerative disc changes. 2. No acute osseous abnormality.
[2023-12-07 16:54] VITALS: BP 126/81; RESP 16
[2023-12-07] MEDS: ACETAMINOPHEN TAB 500 MG TAB PO STA (17:13)
[2023-12-07] MEDS: MORPHINE SULFATE 2 MG/ML SYRINGE IVP STA (17:14)
[2023-12-07] MEDS: ACET/COD 300 MG/30 MG STARTER PACK 6 TAB BTL PO STA (17:14)
[2023-12-07 17:39] VITALS: PULSE 65
== END 2023-12-07 17:21 | disposition home or self-care (01) ==
LOC: EC 13:50
DX: S00.83XA Contusion of other part of head, initial encounter (principal); I95.1 Orthostatic hypotension; F17.200 Nicotine dependence, unspecified, uncomplicated; F12.90 Cannabis use, unspecified, uncomplicated; X58.XXXA Exposure to other specified factors, initial encounter
CPT/HCPCS: 36415; 85379; 80053; 83735; 84484; 85025; 85610; 85730; 80320; 72125; 70450; 99284; 96374; 96361; J2270

== ENCOUNTER 2024-01-25 14:32 | Emergency (ER) | payer OTHER ==
[2024-01-25 14:44] VITALS: TEMP 98.1
[2024-01-25] MEDS: LIDOCAINE 1% INJ 10MG/ML (20 ML MDV) SQ ONE (14:50)
[2024-01-25] MEDS: KETOROLAC 15 MG/ML 1 ML VIAL IVP STA (14:51)
[2024-01-25] MEDS: DIPH,PERTUS(ACELL)TETVAC-LF 0.5 ML VIAL IM ONE (14:51)
[2024-01-25] MEDS: SODIUM CHLORIDE 0.9% 1,000 ML IV STA (14:52)
--- NOTE | 2024-01-25 15:38 | CT ---
EXAMINATION TYPE: CT brain elsaine wo con DATE OF EXAM: 01/25/2024 COMPARISON: 12/07/2023 HISTORY: Syncope and fall. Cut over LT eye. CT DLP: 1228.7 mGycm, Automated exposure control for dose reduction was used. CONTRAST: Patient injected with 0 mL of Isovue 300. CT of the brain is performed utilizing 3 mm thick sections through the posterior fossa and 3 mm thick sections through the remaining calvarium. Study is performed within 24 hours of arrival to the hospital. No abnormal hyperdensity is present to suggest an acute intracranial hemorrhage. No mass lesion is evident. No acute infarcts are evident. Ventricles and sulci are appropriate for the patient age. Paranasal sinuses and mastoid air cells within the [id number] are clear. IMPRESSIONS: 1. No acute intracranial process. Follow-up MRI can be performed as clinically indicated. CT cervical spine. COMPARISON: None CT of the cervical spine is performed in the axial plane at 2 mm thick sections. Reconstructed image s in the coronal, and sagittal plane are reviewed on the computer. No acute fractures are evident. Vertebral body alignment is normal. Disc space narrowing is present posteriorly C3-4 diffusely through the C4-5 C5-6 C6-7 levels greater at C4-5 and C6-7. Minimal posterior vertebral body spurring is seen. C6-7 levels. Vertebral body heights are preserved. No spinal canal stenosis is evident. Uncovertebral joint moderate foraminal stenosis bilaterally C4-5. Anterior endplate spurring is present C4-C7. IMPRESSION: 1. Degenerative disc changes. 2. Foraminal narrowing C4-5
--- NOTE | 2024-01-25 15:41 | XR ---
EXAMINATION TYPE: XR chest 2V DATE OF EXAM: 01/25/2024 COMPARISON: 08/03/2023 INDICATION: Syncope TECHNIQUE: Frontal and lateral views of the chest are obtained. FINDINGS: The heart size is normal. The pulmonary vasculature is normal. The lungs are clear. IMPRESSION: 1. No acute pulmonary process.
--- NOTE | 2024-01-25 15:41 | CT ---
EXAMINATION TYPE: CT facial bones wo con DATE OF EXAM: 01/25/2024 COMPARISON: None HISTORY: Syncope and fall. Cut over LT eye. CT DLP: 1228.7 mGycm CONTRAST: None The paranasal sinuses are examined in the axial plane at 2 mm thick sections. Reconstructed images i n the coronal plane were obtained. There is dental amalgam scatter artifact. There is soft tissue swelling and injury over the left orbi t. There is a retention cyst within the posterior right maxillary sinus. Left maxillary sinus is clear. The ethmoid air cells are clear. The sphenoid sinuses are clear. The frontal sinuses are clear. The septum is evaluated. There is septal deviation to the left. The ostiomeatal units are patent. IMPRESSION: 1. Soft tissue swelling and injury left supraorbital region. 2. No acute fractures evident.
[2024-01-25 15:57] LABS: Basophils % (A) 0 %; Eosinophils # (A) 0.1 k/uL (0-0.7); Eosinophils % (A) 2 %; HCT 44.8 % (39.0-53.0); HGB 14.7 gm/dL (13.0-17.5); Lymphocytes # (A) 0.9 k/uL (1.0-4.8); Lymphocytes % (A) 18 %; MCH 35.3 pg (25.0-35.0); MCHC 32.7 g/dL (31.0-37.0); MCV 107.8 fL (80.0-100.0); Macrocytosis Marked; Mean Platelet Volume 8.6; Monocytes # (A) 0.5 k/uL (0-1.0); Monocytes % (A) 10 %; Neutrophils # (A) 3.3 k/uL (1.3-7.7); Neutrophils % (A) 67 %; Platelet Count 191 k/uL (150-450); RBC 4.15 m/uL (4.30-5.90); RDW 15.9 % (11.5-15.5)
[2024-01-25 16:02] LABS: ALT 55 U/L (4-49); AST 71 U/L (17-59); African American GFR (CKD) >90 (>60 ml/min/1.73 sqM); Albumin 3.7 g/dL (3.5-5.0); Alcohol <10 mg/dL; Alkaline Phosphatase 90 U/L (38-126); Anion Gap 5 mmol/L; Blood Urea Nitrogen 17 mg/dL (9-20); Calcium 8.6 mg/dL (8.4-10.2); Carbon Dioxide 24 mmol/L (22-30); Chloride 102 mmol/L (98-107); Glucose 105 mg/dL (74-99); Magnesium 1.9 mg/dL (1.6-2.3); Non-African American GFR(CKD) >90 (>60 ml/min/1.73 sqM); Potassium 3.7 mmol/L (3.5-5.1); Sodium 131 mmol/L (137-145); Total Bilirubin 0.7 mg/dL (0.2-1.3); Total Protein 6.3 g/dL (6.3-8.2)
--- NOTE | 2024-01-25 16:11 | ED ---
Seizure HPI - General Chief Complaint: Syncope Stated Complaint: Syncope Time Seen by Provider: 01/25/24 14:42 Source: patient, RN notes reviewed Mode of arrival: EMS Limitations: no limitations - History of Present Illness Initial Comments: This is a 58-year-old male who presents to the emergency department for a seizure. Per EMS, patient's coworkers heard a noise and found the patient face down on the ground shaking. He was evaluated here last month for a syncopal episode and they were unsure if it may have been related to seizure activity. Patient has never been formally diagnosed with a seizure disorder and does not take any medication for it. He is supposed to see a neurologist, but does not currently have health insurance and has been unable to do so. When EMS arrived the patient was reportedly postictal. Patient is not quite sure what happened prior to the event. He does have a large laceration above his left eyebrow. Unsure when his last tetanus vaccine was. Also complaining of a headache and right shoulder pain. Not taking any blood thinners. MD Complaint: seizure - Related Data Home Medications Medication Instructions Recorded Confirmed Albuterol Sulfate [Proair Hfa] 2 puff INHALATION RT-QID PRN 09/01/21 12/07/23 Sertraline HCl [Zoloft] 50 mg PO DAILY 02/16/22 12/07/23 Ibuprofen [Motrin] 800 mg PO TID PRN 12/07/23 12/07/23 Levothyroxine Sodium [Synthroid] 25 mcg PO DAILY 12/07/23 12/07/23 Allergies Allergy/AdvReac Type Severity Reaction Status Date / Time No Known Allergies Allergy Verified 01/25/24 14:45 Review of Systems ROS Statement: Those systems with pertinent positive or pertinent negative responses have been documented in the HPI. ROS Other: All systems not noted in ROS Statement are negative. Past Medical History Past Medical History: Asthma Additional Past Medical History / Comment(s): diverticulitis. History of Any Multi-Drug Resistant Organisms: None Reported Past Surgical History: Hernia Repair Past Psychological History: Anxiety Smoking Status: Current every day smoker Past Alcohol Use History: Occasional Past Drug Use History: Marijuana General Exam Limitations: no limitations General appearance: alert, in no apparent distress Head exam: Present: other (2 lacerations above the left eyebrow with active b leeding) Eye exam: Present: normal appearance, PERRL, EOMI. Absent: scleral icterus, conjunctival injection, periorbital swelling Respiratory exam: Present: normal lung sounds bilaterally. Absent: respiratory distress, wheezes, rales, rhonchi, stridor Cardiovascular Exam: Present: regular rate, normal rhythm, normal heart sounds. Absent: systolic murmur, diastolic murmur, rubs, gallop, clicks Neurological exam: Present: alert, oriented X3, CN II-XII intact Psychiatric exam: Present: normal affect, normal mood Course Vital Signs 01/25/24 01/25/24 01/25/24 14:39 16:05 17:24 Temperature 98.1 F 98.1 F 98.1 F Pulse Rate 71 76 86 Respiratory 16 18 18 Rate Blood Pressure 127/88 128/76 148/86 O2 Sat by Pulse 97 97 99 Oximetry Procedures - Laceration Laceration #1 Consent Obtained: verbal consent Indication: laceration Site: face Size (cm): 5 Description: linear Depth: simple, single layer Anesthetic Used: lidocaine 1% Anesthesia Technique: local infiltration Amount (mls): 4 Pre-repair: wound explored, irrigated extensively Type of Sutures: nylon Size of Sutures: 5-0 Number of Sutures: 9 Technique: simple, interrupted Laceration #2 Consent Obtained: verbal consent Indication: laceration Site: face Size (cm): 3 Description: linear, stellate Depth: simple, single layer Anesthetic Used: lidocaine 1% Anesthesia Technique: local infiltration Amount (mls): 3 Pre-repair: wound explored, irrigated extensively Type of Sutures: nylon Size of Sutures: 5-0 Number of Sutures: 7 Technique: simple, interrupted Medical Decision Making - Medical Decision Making This is a 58-year-old male who presents to the emergency department for a seizure. Was pt. sent in by a medical professional or institution? @ -No Did you speak to anyone other than the patient for history? @ -EMS provided the information regarding the event. Did you review nursing and triage notes? @ -Yes, and I agree, it is accurate with regards to the patient's symptoms. Were old charts reviewed? @ -No Differential Diagnosis? @ -Differential Seizure: Recurrent seizure disorder, febrile seizure, alcohol withdrawal, stimulants, meningitis, encephalitis, intercranial hemorrhage, intracranial tumor, stroke, eclampsia, thyrotoxicosis, hypocalcemia, hyponatremia, hypernatremia, hy pomagnesemia, psychogenic, this is not meant to be an all-inclusive list. EKG interpreted by me (3pts min.)? @ -EKG interpreted by me demonstrating the following: Sinus rhythm. Ventricular rate 72 bpm, MD interval 170 ms, QRS duration 98 ms, QTc 422 ms. X-rays interpreted by me (1pt min.)? @ -Chest x-ray obtained, my interpretation identifies no localized consolidations or infiltrates. X-ray of the right shoulder obtained. My interpretation identifies no acute fractures. CT interpreted by me (1pt min.)? @ -Computed tomography scan of the brain and c-spine obtained. My interpretation identifies no evidence of an acute intracranial hemorrhage, skull fracture, or cervical spine fracture. CT scan of the facial bones obtained. My interpretation identifies no facial fractures. U/S interpreted by me (1pt. min.)? @ -Not obtained What testing was considered but not performed? (CT, X-rays, U/S, labs)? Why? @ -None What meds were considered but not given? Why? @ -None Did you discuss the management of the patient with other professionals? @ -No Did you reconcile home meds? @ -No Was smoking cessation discussed for >3mins.? @ -No Was critical care preformed (if so, how long)? @ -No Were there social determinants of health that impacted care today? How? (Homelessness, low income, unemployed, alcoholism, drug addiction, transportation, low edu. Level, literacy, decrease access to med. care, shelter, rehab)? @ -No Was there de-escalation of care discussed even if they declined? (Discuss DNR or withdrawal of care, Hospice)? @ -No What co-morbidities impacted this encounter? (DM, HTN, Smoking, COPD, CAD, Cancer, CVA, Hep., AIDS, mental health diagnosis, sleep apnea, morbid obesity)? @ -None Was patient admitted / discharged? @ -Lab work fairly unremarkable. He has a mild elevation in LFTs and mild hyponatremia. X-ray of the chest and right shoulder revealed no acute findings. CT scan of the brain/C-spine and CT scan of the facial bones demonstrates soft tissue swelling and injury in the left supraorbital region without other acute process. Patient had 2 large lacerations to this region. Tetanus vaccine was updated and the lacerations were thoroughly cleansed and repaired with sutures. Patient was advised that the cause of this syncopal episode is not currently clear. It may have been related to seizure activity or could have been due to a cardiac arrhythmia. Given that he has now had two syncopal episodes within the last couple of months, I did advise admission for further evaluation and monitoring. Patient declined and states that he does not currently have health insurance and would rather follow-up with neurology on an outpatient basis. Patient did subsequently signed out AMA with strict return parameters. He was also advised to return in 7 to 10 days for suture removal Undiagnosed new problem with uncertain prognosis? @ -None Drug Therapy requiring intensive monitoring for toxicity (Heparin, Nitro, Insulin, Cardizem)? @ -None Were any procedures done? @ -Laceration repair with sutures Diagnosis/symptom? @ -Syncope versus seizure, laceration, head injury Acute, or Chronic, or Acute on Chronic? @ -Acute Uncomplicated (without systemic symptoms) or Complicated (systemic symptoms)? @ -Uncomplicated Side effects of treatment? @ -None Exacerbation, Progression, or Severe Exacerbation] @ -Not applicable Poses a threat to life or bodily function? @ -This will depend on the cause of the syncopal episode. Return precautions reviewed in depth, the patient is instructed to return to the emergency department with any new, worsening, or concerning symptoms. Patient verbalized understanding. This case was discussed in detail with the attending ED physician, Dr. Taylor. Presentation, findings, and treatment plan discussed in detail as well. - Lab Data Result diagrams: 01/25/24 15:06 01/25/24 15:06 Lab Results 01/25/24 01/25/24 01/25/24 Range/Units 15:06 15:06 15:06 WBC 5.0 (3.8-10.6) k/uL RBC 4.15 L (4.30-5.90) m/uL Hgb 14.7 (13.0-17.5) gm/dL Hct 44.8 (39.0-53.0) % MCV 107.8 H (80.0-100.0) fL MCH 35.3 H (25.0-35.0) pg MCHC 32.7 (31.0-37.0) g/dL RDW 15.9 H (11.5-15.5) % Plt Count 191 (150-450) k/uL MPV 8.6 Neutrophils % 67 % Lymphocytes % 18 % Monocytes % 10 % Eosinophils % 2 % Basophils % 0 % Neutrophils # 3.3 (1.3-7.7) k/uL Lymphocytes # 0.9 L (1.0-4.8) k/uL Monocytes # 0.5 (0-1.0) k/uL Eosinophils # 0.1 (0-0.7) k/uL Basophils # 0.0 (0-0.2) k/uL Manual Slide Review Performed Macrocytosis Marked A PT 10.1 (10.0-12.5) sec INR 0.9 (<1.2) APTT 24.3 (22.0-30.0) sec Sodium 131 L (137-145) mmol/L Potassium 3.7 (3.5-5.1) mmol/L Chloride 102 (98-107) mmol/L Carbon Dioxide 24 (22-30) mmol/L Anion Gap 5 mmol/L BUN 17 (9-20) mg/dL Creatinine 0.85 (0.66-1.25) mg/dL Est GFR (CKD-EPI)AfAm >90 (>60 ml/min/1.73 sqM) Est GFR (CKD-EPI)NonAf >90 (>60 ml/min/1.73 sqM) Glucose 105 H (74-99) mg/dL Plasma Lactic Acid Mukul (0.7-2.0) mmol/L Calcium 8.6 (8.4-10.2) mg/dL Magnesium 1.9 (1.6-2.3) mg/dL Total Bilirubin 0.7 (0.2-1.3) mg/dL AST 71 H (17-59) U/L ALT 55 H (4-49) U/L Alkaline Phosphatase 90 (38-126) U/L Troponin I (0.000-0.034) ng/mL Total Protein 6.3 (6.3-8.2) g/dL Albumin 3.7 (3.5-5.0) g/dL Serum Alcohol <10 mg/dL 01/25/24 01/25/24 Range/Units 15:06 15:59 WBC (3.8-10.6) k/uL RBC (4.30-5.90) m/uL Hgb (13.0-17.5) gm/dL Hct (39.0-53.0) % MCV (80.0-100.0) fL MCH (25.0-35.0) pg MCHC (31.0-37.0) g/dL RDW (11.5-15.5) % Plt Count (150-450) k/uL MPV Neutrophils % % Lymphocytes % % Monocytes % % Eosinophils % % Basophils % % Neutrophils # (1.3-7.7) k/uL Lymphocytes # (1.0-4.8) k/uL Monocytes # (0-1.0) k/uL Eosinophils # (0-0.7) k/uL Basophils # (0-0.2) k/uL Manual Slide Review Macrocytosis PT (10.0-12.5) sec INR (<1.2) APTT (22.0-30.0) sec Sodium (137-145) mmol/L Potassium (3.5-5.1) mmol/L Chloride (98-107) mmol/L Carbon Dioxide (22-30) mmol/L Anion Gap mmol/L BUN (9-20) mg/dL Creatinine (0.66-1.25) mg/dL Est GFR (CKD-EPI)AfAm (>60 ml/min/1.73 sqM) Est GFR (CKD-EPI)NonAf (>60 ml/min/1.73 sqM) Glucose (74-99) mg/dL Plasma Lactic Acid Mukul 0.9 (0.7-2.0) mmol/L Calcium (8.4-10.2) mg/dL Magnesium (1.6-2.3) mg/dL Total Bilirubin (0.2-1.3) mg/dL AST (17-59) U/L ALT (4-49) U/L Alkaline Phosphatase (38-126) U/L Troponin I <0.012 (0.000-0.034) ng/mL Total Protein (6.3-8.2) g/dL Albumin (3.5-5.0) g/dL Serum Alcohol mg/dL - Radiology Data Radiology results: report reviewed, image reviewed Disposition Clinical Impression: Seizure, Syncope, Laceration, Head injury Disposition: LEFT AGAINST MEDICAL ADVICE Instructions (If sedation given, give patient instructions): New-Onset Seizure in Adults (ED), Care For Your Stitches (ED) Additional Instructions: Return to the emergency department with any new, worsening, or concerning symptoms and in 7-10 days for removal of the stitches. Alternate with ibuprofen and Tylenol as needed for pain relief. Try to get your insurance set up again so you can make an appointment with a neurologist for further evaluation of possible seizure activity. Follow up with your primary care provider in 1-2 days. Is patient prescribed a controlled substance at d/c from ED?: No Referrals: Phan Zelaya MD [Primary Care Provider] - 1-2 days
[2024-01-25 16:12] LABS: INR 0.9 (<1.2); Partial Thromboplastin Time 24.3 sec (22.0-30.0); Prothrombin Time 10.1 sec (10.0-12.5)
[2024-01-25] MEDS: MORPHINE SULFATE 4 MG/ML SYRINGE IVP STA (16:29)
--- NOTE | 2024-01-25 17:02 | XR ---
EXAMINATION TYPE: XR shoulder complete RT DATE OF EXAM: 01/25/2024 4:46 PM CLINICAL INDICATION:Male, 58 years old with history of Fall; COMPARISON: None TECHNIQUE: XR shoulder complete RT; examined in AP, internally rotated and scapular Y projections. FINDINGS: No evidence of acute osseous pathology, joint dislocation, or soft tissue swelling. The remaining po rtions of the visualized chest are unremarkable. Mild degeneration changes of the acromion and dista l clavicle. IMPRESSION: No acute osseous pathology.
[2024-01-25 17:11] VITALS: RESP 18
[2024-01-25 17:27] VITALS: BP 148/86; PULSE 86
== END 2024-01-25 17:07 | disposition left against medical advice (07) ==
LOC: EC 14:32
DX: S01.112A Laceration without foreign body of left eyelid and periocular area, initial encounter (principal); R56.9 Unspecified convulsions; F17.200 Nicotine dependence, unspecified, uncomplicated; Z23 Encounter for immunization; X58.XXXA Exposure to other specified factors, initial encounter
CPT/HCPCS: 36415; 93005; 80053; 83605; 83735; 84484; 85025; 85610; 85730; 80320; 73030; 71046; 72125; 70486; 70450; 90715; 99285; 96374; 96375; 96361; 90471; 12015; J2270; J2001; J1885